=== PATIENT | female | born 1975 | race Caucasian/White ===

== ENCOUNTER 2021-04-04 12:22 | Emergency (ER) | payer OTHER ==
[~2021-04-04] VITALS: Ht 162.6 cm; Wt 71.2 kg
[2021-04-04 12:22] VITALS: BP_SYST 123
[2021-04-04] MEDS ORDERED: KETOROLAC TROMETHAMINE 30 MG VIAL IVP ONE (12:45)
[2021-04-04] MEDS ORDERED: MAG HYDROX/AL HYDROX/SIMETH 30 ML, DICYCLOMINE HCL 20 MG, LIDOCAINE VISCOUS 2% 15ML (PO... PO ONE ×3 (12:45)
[2021-04-04 12:55] LABS: BASOPHILS % (AUTO) 0.5 % (0.0-2.0); EOSINOPHILS # (AUTO) 0.1 K/uL (0.0-0.4); EOSINOPHILS % (AUTO) 0.7 % (0.0-4.0); HEMATOCRIT 47.1 % (36-48); HEMOGLOBIN 15.8 g/dL (12.0-16.0); LYMPHOCYTES # (AUTO) 2.4 K/uL (1.0-5.5); LYMPHOCYTES % (AUTO) 32.1 % (20.5-51.5); MEAN CORPUSCULAR HEMOGLOBIN 31 pg (27-31); MEAN CORPUSCULAR HGB CONC 34 % (32-36); MEAN CORPUSCULAR VOLUME 93 fL (79.0-98.0); MONOCYTES # (AUTO) 0.5 K/uL (0.0-1.0); MONOCYTES % (AUTO) 6.3 % (1.7-9.3); NEUTROPHILS # (AUTO) 4.6 K/uL (1.8-7.7); NEUTROPHILS % (AUTO) 60.4 % (40.0-70.0); PLATELET COUNT (AUTO) 176 K/uL (130-430); RED BLOOD CELL COUNT(AUTO) 5.09 MIL/uL (4.2-6.2); RED CELL DISTRIBUTION WIDTH 14.1 % (9.0-15.0); WHITE BLOOD COUNT (AUTO) 7.6 K/uL (4.8-10.8)
[2021-04-04 13:03] LABS: CALCIUM 9.3 mg/dL (8.4-11.0); CREATININE 0.77 mg/dL (0.55-1.30)
[2021-04-04 13:08] LABS: ALBUMIN 4.3 g/dL (3.4-4.8); TOTAL BILIRUBIN 1.8 mg/dL (0.0-1.0)
[2021-04-04] MEDS ORDERED: SUCR1ORA4 PO (13:46)
[2021-04-04] MEDS ORDERED: PERC10 PO (13:46)
[2021-04-04 14:13] VITALS: BP_SYST 123
== END 2021-04-04 14:13 | disposition home or self-care (01) ==
LOC: SED 12:22
DX: K22.4 Dyskinesia of esophagus (principal); R07.89 Other chest pain; Z88.8 Allergy status to other drugs, medicaments and biological substances; Z79.899 Other long term (current) drug therapy
CPT/HCPCS: 36415; 71045; 80053; 82550; 83880; 84484; 85025; 93005; 96374; 99285; J1885; J2001

== ENCOUNTER 2023-04-18 12:49 | Emergency (ER) | payer OTHER ==
[~2023-04-18] VITALS: Ht 165.1 cm; Wt 59.0 kg
[~2023-04-18 12:49] MED LIST: PERC10 PO; SUCR1ORA4 PO
[2023-04-18] MEDS ORDERED: OXYC-128 PO ×2 (13:07→13:36)
[2023-04-18 13:11] VITALS: BP_SYST 127
[2023-04-18] MEDS ORDERED: OXYCODONE/ACETAMINOPHEN 5-325 TABLET PO ONE (13:45)
[2023-04-18 13:47] VITALS: BP_SYST 127
== END 2023-04-18 13:47 | disposition home or self-care (01) ==
LOC: SED 12:49
DX: G62.9 Polyneuropathy, unspecified (principal); R51.9 Headache, unspecified; M25.512 Pain in left shoulder; Z88.6 Allergy status to analgesic agent; Z79.899 Other long term (current) drug therapy
CPT/HCPCS: 99283

== ENCOUNTER 2024-01-06 08:06 | Emergency (ER) | payer OTHER ==
[~2024-01-06] VITALS: Ht 160 cm; Wt 70.3 kg
[~2024-01-06 08:06] MED LIST changes: +OXYC-128 PO
[2024-01-06 08:18] VITALS: BP_SYST 111; PULSE 73; RESP 16; TEMP 98.1; O2SAT 95
[2024-01-06] MEDS: HYDROcodone/ACETAMIN 5-325 MG TAB (NORCO/ VICODIN) PO ONE (08:32)
[2024-01-06] MEDS ORDERED: METH4TAB3 PO (10:13)
[2024-01-06] MEDS ORDERED: LIDO1ADH91 TD (10:19)
[2024-01-06 10:31] VITALS: BP_SYST 103; PULSE 64; RESP 16; TEMP 98; O2SAT 96
== END 2024-01-06 10:33 | disposition home or self-care (01) ==
LOC: SED 08:06
DX: M54.16 Radiculopathy, lumbar region (principal); Z88.8 Allergy status to other drugs, medicaments and biological substances; Z79.899 Other long term (current) drug therapy
CPT/HCPCS: 72131; 99285